=== PATIENT | female | born 1960 | race Caucasian/White ===

== ENCOUNTER → 2016-09-11 | Outpatient (CLI) | payer OTHER ==
[~2016-09-11] MED LIST: AMITRYPTYLINE PO; ESTRADIOL1 MG PO; JANUVIA PO; JANUVIA100 MG PO; LISINOPRIL5 MG PO; METFORMIN HCL1000 M1 PO; METFORMIN PO; PANTOPRAZOLE SO40 MG PO; PROGESTERONE100 MG PO; SIMVASTATIN40 MG PO; VICTOZA0.6 MG/0.1 SQ; VICTOZA0.6 MG/0.1 SUBQ; ZESTRIL5 MG PO
--- NOTE | ~2016-09-11 | ST ---
Unit #: [id number] #: [id number] Patient: LISA RIVERA [id number] [facility]. [address] [address] [id number] O MR#: [id number] NAME: LISA RIVERA. : 1960 SEX: F STUDY DATE/TIME: 09/11/2016 UNIT: [facility] ROOM: STUDY DESCRIPTION: Attending Physician: Annmarie Hylton M.D. Referring Physician: Annmarie Hylton M.D. Primary Care Physician: Ashley Horne M.D. CARDIOLOGY REPORT EXAM Exercise Cardiolite stress test. FINDINGS Baseline EKG shows normal sinus rhythm with a rate of 84 beats per minute with nonspecific ST wave abnormalities. The patient exercised on a treadmill using Gabriele protocol for 6 minutes and 36 seconds achieving a workload of 7 METS. Ninety-one percent (91%) of the maximal age-predicted heart rate was reached at 151 beats per minute with a maximum blood pressure response of 156/70 mmHg. The patient had no complaints of chest pain, palpitations, or dizziness while on the treadmill. In the immediate recovery phase, she reported burning in her throat that improved after a drink of water. EKG during exercise showed ST depression with a downsloping T wave segment inversion in the inferior leads with T wave inversion in V3-V4 after one minute into the test. The T wave inversion resolved at three minutes. There was no arrhythmia seen. The was terminated secondary to achieving target heart rate. IMPRESSION 1. Good exercise tolerance with a workload of 7 METS. 2. Ninety-one percent (91%) of the maximal age-predicted heart rate was reached at 150 beats per minute with a normotensive blood pressure response. 3. The patient had no complaints of chest pain, palpitations, or dizziness while on the treadmill. She had no jaw or neck pain. At the end of the test, she had burning in her throat that improved after a drink of water. 4. EKG during exercise showed 0.5 mm downsloping T wave segment inversion in the inferior leads with T wave inversion in V3-V6 that resolved after three minutes. No arrhythmias were seen. 5. Cardiolite was injected at peak exercise with radionuclide test pending. Please correlate these results with nuclear images. 1. Dictated by... CarlosEva Stock M.D. AEP/marielos TD: 09/11/2016 15:41 JOB #: [id number] Unit #: [id number] #: [id number] Patient: LISA RIVERA CARDIOLOGY REPORT Page 1 of 1 X Carlos Underwood APRN CARDIOLOGY REPORT
--- NOTE | ~2016-09-11 | TH ---
Unit #: [id number] #: [id number] Patient: LISA RIVERA [id number] [facility]. [address] [address] [id number] O MR#: [id number] NAME: LISA RIVERA. : 1960 SEX: F STUDY DATE/TIME: 09/11/2016 UNIT: [facility] ROOM: STUDY DESCRIPTION: Attending Physician: Annmarie Hylton M.D. Referring Physician: Annmarie Hylton M.D. Primary Care Physician: Ashley Horne M.D. CARDIOLOGY REPORT EXAM Exercise Cardiolite stress test, nuclear portion. PROCEDURE Using technetium 99m labeled Cardiolite, rest and stress SPECT images were obtained. Multiple SPECT images were obtained in various views including horizontal and vertical long axis and short axis views of the left ventricle. Images were obtained by gated SPECT method. The patient was administered 10.84 mCi of Cardiolite at rest. The patient was administered 29.3 mCi of Cardiolite at peak exercise. Total exercise time is 6 minutes and 36 seconds. On the stress images, there is normal perfusion noted. The rest images showed normal perfusion. Comparing rest and stress images, there is no stress-induced ischemia noted. The left ventricular ejection fraction is calculated to be 70%. There is no focal wall motion abnormality seen. CONCLUSION 1. No obvious stress-induced ischemia noted. 2. The left ventricular ejection fraction is calculated to be 70%. 3. There is no focal wall motion abnormality seen. 4. The left ventricular size is small. 5. Normal exercise Cardiolite stress test. Dictated by... Mike Aguilar TD: 09/11/2016 16:23 JOB #: [id number] CC: Ashley Horne M.D. Unit #: [id number] #: [id number] Patient: LISA RIVERA CARDIOLOGY REPORT Page 1 of 1 X Annmarie Hylton MD <ELECTRONICALLY SIGNED> 11/09/16 1429 CARDIOLOGY REPORT
== END | disposition home or self-care (01) ==
LOC: CNUC 12:59
DX: R07.9 Chest pain, unspecified (principal)
CPT/HCPCS: 78452; 93017; A9500